=== PATIENT | male | born 1980 | race Two or more races ===

== ENCOUNTER 2017-10-10 19:03 | Emergency (ER) | payer SELFPAY ==
[2017-10-10] MEDS ORDERED: IBUPROFEN 600 MG TABLET (FP) PO ONE ×2 (19:32→20:31)
--- NOTE | 2017-10-10 19:32 | PDOC ---
Rapid Medical Evaluation Time Seen by Provider: 10/10/17 19:27 Medical Evaluation: Allergies Allergy/AdvReac Type Severity Reaction Status Date / Time No Known Allergies Allergy Verified 05/02/13 13:00 10/10/17 19:28 The patient presents with a chief complaint of: fever I have performed a brief in-person evaluation of this patient. Pertinent physical exam findings: vss, stable I have ordered the following: rapid strep, influenza, motrin The patient will proceed to the ED for further evaluation.
[2017-10-10 19:33] VITALS: BP 131/82; PULSE 74; BMI 26.0
[2017-10-10 20:49] VITALS: TEMP 100.4
--- NOTE | 2017-10-10 21:29 | PDOC ---
History of Present Illness - General Chief Complaint: Sore Throat Stated Complaint: THROAT PAIN, ARM PAIN Time Seen by Provider: 10/10/17 19:27 History Source: Patient Exam Limitations: No Limitations - History of Present Illness Initial Comments: 10/10/17 21:24 37-year-old male [place] with past medical history of presents to emergency department with 2 weeks of sore throat and dry cough. Patient states she's been experiencing intermittent fevers but has not been checking his temperature only feeling warm. Patient denies any headaches, dizziness, chest pain, shortness of breath, abdominal pain, nausea, vomiting, dysuria, hematuria, diarrhea Past History - Past Medical History Allergies/Adverse Reactions: Allergies Allergy/AdvReac Type Severity Reaction Status Date / Time No Known Allergies Allergy Verified 10/10/17 19:29 Home Medications: Ambulatory Orders No Home Medications 0 dose .ROUTE UTDICT 05/02/13 - Suicide/Smoking/Psychosocial Hx Smoking Status: No Smoking History: Never smoked Number of Cigarettes Smoked Daily: 0 Review of Systems - Review of Systems Able to Perform ROS?: Yes Is the patient limited [place] proficient: No Constitutional: Yes: See HPI HEENTM: Yes: See HPI Respiratory: Yes: See HPI Cardiac (ROS): No: Symptoms Reported ABD/GI: No: Symptoms Reported : No: Symptoms Reported Musculoskeletal: No: Symptoms Reported Integumentary: No: Symptoms Reported Neurological: No: Symptoms reported Endocrine: No: Symptoms Reported Hematologic/Lymphatic: No: Symptoms Reported *Physical Exam - Vital Signs Last Vital Signs Temp Pulse Resp BP Pulse Ox 100.4 F H 74 16 131/82 99 10/10/17 20:48 10/10/17 19:25 10/10/17 19:25 10/10/17 19:25 10/10/17 19:25 - Physical Exam General Appearance: Yes: Appropriately Dressed. No: Apparent Distress HEENT: positive: Normal ENT Inspection Neck: positive: Trachea midline, Supple Respiratory/Chest: positive: Lungs Clear, Normal Breath Sounds. negative: Respiratory Distress, Accessory Muscle Use Cardiovascular: positive: Regular Rhythm, Regular Rate, S1, S2. negative: Murmur Gastrointestinal/Abdominal: positive: Normal Bowel Sounds, Soft. negative: Tender Musculoskeletal: positive: Normal Inspection. negative: CVA Tenderness Extremity: positive: Normal Inspection, Normal Range of Motion Integumentary: positive: Normal Color, Dry, Warm Neurologic: positive: Alert, Normal Response, Motor Strength 5/5 ED Treatment Course - Medications Given in the ED: ED Medications Discontinued Medications Generic Name Dose Route Start Last Admin Trade Name Christian PRN Reason Stop Dose Admin Ibuprofen 600 mg 10/10/17 19:32 10/10/17 19:45 Motrin - PO 10/10/17 19:33 600 mg ONCE ONE Administration Medical Decision Making - Medical Decision Making 10/10/17 21:27 A/P: 37-year-old male without past medical history with 2 weeks of upper respiratory symptoms TMs within normal limits. External auditory canal is clear without erythema or exudate Pharynx clear without erythema or exudate No stridor present No cervical lymphadenopathy present Lungs clear to auscultation bilaterally Given onset of symptoms greater than 72 hours, have instructed the patient on symptomatic treatment of upper respiratory infection. Patient verbalizes understanding of discharge instructions. *DC/Admit/Observation/Transfer Diagnosis at time of Disposition: Upper respiratory infection Qualifiers: URI type: unspecified viral URI Qualified Code(s): J06.9 - Acute upper respiratory infection, unspecified - Discharge Dispostion Disposition: HOME Condition at time of disposition: Stable Admit: No - Referrals - Patient Instructions Additional Instructions: Rest, drink lots of fluids: Teas, water, soups, Pedialyte Saltwater gargles Steamy showers/seem to face break up mucus Avoid contact with others until fevers and cough resolved Lots of handwashing and good hygiene Continue [id number] medications for symptomatic relief Tylenol or Motrin for fever and pain Followup with private physician in one to 2 days as needed Return to emergency department for worsened symptoms, fevers, dehydration - Post Discharge Activity
== END 2017-10-10 21:28 | disposition home or self-care (01) ==
LOC: JERFT 19:03
DX: J06.9 Acute upper respiratory infection, unspecified (principal)
CPT/HCPCS: 99281-25

== ENCOUNTER 2020-06-04 10:12 | Inpatient (IN) | payer OTHER ==
[2020-06-04] MEDS ORDERED: NALOXONE HCL 0.4 MG/ML VIAL IVPUSH ONE (10:20)
[2020-06-04] MEDS ORDERED: ONDANSETRON 4 MG/2 ML VIAL IVPUSH ONE ×2 (10:20→10:56)
[2020-06-04] MEDS ORDERED: SODIUM CHLORIDE 0.9% 500 ML INFUS.BAG IV ONE (10:20)
[2020-06-04 11:04] LABS: BASO % 0.4 % (0-2.0); EOS % 0.2 % (0-4.5); HEMATOCRIT 44.5 % (35.4-49); HEMOGLOBIN 14.5 GM/dL (11.7-16.9); LYMPH % 10.8 % (8-40); MCH 29.2 pg (25.7-33.7); MCHC 32.5 g/dl (32.0-35.9); MEAN CELL VOLUME 89.8 fl (80-96); MEAN PLT VOLUME 9.1 fl (7.5-11.1); MONO % 5.4 % (3.8-10.2); NEUT % 83.2 % (42.8-82.8); PLATELET COUNT 307 K/MM3 (134-434); RBC 4.96 M/mm3 (4.00-5.60); RDW 14.1 % (11.9-15.9); WHITE BLOOD COUNT 15.5 K/mm3 (4.0-10.0)
[2020-06-04 11:12] LABS: INR 1.03 (0.83-1.09); PROTHROMBIN TIME (PATIENT) 12.6 SEC (9.7-13.0)
[2020-06-04 11:14] LABS: ACTIVATED PTT 30.2 SECONDS (25.2-36.5)
[2020-06-04 11:21] LABS: EPI CELLS 7 /uL (0-25.1); HYALINE CASTS 3 /uL (0-3.1); URINE APPEARANCE CLEAR; URINE BACTERIA 7 /uL (0-1359); URINE BILIRUBIN NEGATIVE (NEGATIVE); URINE COLOR YELLOW; URINE GLUCOSE (UA) NEGATIVE (NEGATIVE); URINE KETONE NEGATIVE (NEGATIVE); URINE LEUK ESTERASE NEGATIVE (NEGATIVE); URINE NITRITE NEGATIVE (NEGATIVE); URINE PROTEIN 2+ (NEGATIVE); URINE RBC 8 /uL (0-23.9); URINE UROBILINOGEN 0.2 mg/dL (0.2-1.0); URINE WBC 1 /uL (0-25.8)
[2020-06-04] MEDS ORDERED: MECLIZINE HCL 25 MG TABLET (FP) PO ONE ×2 (11:25→12:02)
[2020-06-04 11:28] LABS: COCAINE, UR NEGATIVE ng/ml (CUTOFF=300); URINE AMPHETAMINES NEGATIVE ng/ml (CUTOFF=500); URINE BARBITURATES NEGATIVE ng/ml (CUTOFF=200); URINE BENZODIAZEPINES NEGATIVE ng/ml (CUTOFF=200)
[2020-06-04 11:29] LABS: PHENCYCLIDINE,URINE NEGATIVE ng/ml (CUTOFF=25)
[2020-06-04] MEDS ORDERED: MECLIZINE HCL 25 MG TABLET (FP) ONE (11:31)
[2020-06-04 11:32] LABS: CHLORIDE 106 mmol/L (98-107); POTASSIUM 4.3 mmol/L (3.5-5.1); SODIUM 139 mmol/L (136-145)
[2020-06-04 11:34] LABS: ALBUMIN 4.1 g/dl (3.4-5.0); ANION GAP 8 MMOL/L (8-16); BLOOD UREA NITROGEN 19.6 mg/dL (7-18); CALCIUM 8.7 mg/dL (8.5-10.1); CO2 25 mmol/L (21-32)
[2020-06-04 11:35] LABS: GLUCOSE,RANDOM 144 mg/dL (74-106)
[2020-06-04 11:37] LABS: METHADONE, UR NEGATIVE ng/ml (CUTOFF=300); OPIATES, URI NEGATIVE ng/ml (CUTOFF=300)
[2020-06-04 11:38] LABS: SGOT/AST 55 U/L (15-37); SGPT/ALT 69 U/L (13-61)
[2020-06-04] MEDS ORDERED: METOCLOPRAMIDE HCL INJECTION 10 MG/2 ML VIAL ONE (11:38)
[2020-06-04 11:39] LABS: BILIRUBIN,TOTAL 0.5 mg/dL (0.2-1); LDH 321 U/L (87-246); TOT PROT 8.5 g/dl (6.4-8.2)
[2020-06-04 11:40] LABS: ALK PHOS 103 U/L (45-117)
[2020-06-04] MEDS ORDERED: METOCLOPRAMIDE HCL INJECTION 10 MG/2 ML VIAL IVPUSH ONE (11:41)
[2020-06-04] MEDS ORDERED: diazePAM CARPU-JECT 10 MG/2 ML DISP.SYRIN IVPUSH ONE (11:44)
[2020-06-04] MEDS ORDERED: diazePAM CARPU-JECT 10 MG/2 ML DISP.SYRIN ONE (11:47)
[2020-06-04] MEDS ORDERED: ATROPINE SULFATE 1 MG/10 ML DISP.SYRIN IVPUSH ONE (11:50)
[2020-06-04] MEDS ORDERED: ATROPINE SULFATE 1 MG/10 ML DISP.SYRIN ONE (11:55)
[2020-06-04 12:33] LABS: ARTERIAL BLD GAS O2 SATURATION 96.5 mmHg (95-98); ARTERIAL BLOOD GAS BASE EXCESS -5.3 mmol/L (-2-2); ARTERIAL BLOOD GAS PO2 95.8 mmHg (80-100); ARTERIAL BLOOD GAS pH 7.288 (7.350-7.450)
[2020-06-04 12:34] LABS: ALLENS TEST POSITIVE
[2020-06-04] MEDS ORDERED: SODIUM CHLORIDE 1,000 ML IV STA (13:05)
[2020-06-04] MEDS ORDERED: METOCLOPRAMIDE HCL INJECTION 10 MG/2 ML VIAL IVPUSH PRN ×2 (15:18→21:08)
[2020-06-04] MEDS ORDERED: TRIMETHOBENZAMIDE HCL 200MG/2ML INJ IM PRN (15:18)
[2020-06-04] MEDS: SODIUM CHLORIDE 1,000 ML IV SCH (15:40)
[2020-06-04 16:17] LABS: CHOLESTEROL 210 mg/dL (50-200)
[2020-06-04 16:18] LABS: TRIGLYCERIDES 64 mg/dL (0-150)
[2020-06-04 16:19] LABS: LDL CHOLESTEROL (ONLY SJRH) 124 mg/dL (5-100)
[2020-06-04 16:21] LABS: HDL CHOLESTEROL 67 mg/dL (40-60)
[2020-06-04] MEDS ORDERED: ATROPINE SULFATE 1 MG/10 ML DISP.SYRIN IVPUSH PRN (21:00)
[2020-06-04] MEDS ORDERED: ONDANSETRON 4 MG/2 ML VIAL IVPUSH PRN (21:08)
[2020-06-04 23:01] VITALS: BMI 27.5
[2020-06-05] MEDS: SODIUM CHLORIDE 1,000 ML IV SCH (06:46)
[2020-06-05 07:18] LABS: BASO % 0.6 % (0-2.0); EOS % 0.1 % (0-4.5); HEMATOCRIT 40.9 % (35.4-49); HEMOGLOBIN 13.3 GM/dL (11.7-16.9); LYMPH % 11.2 % (8-40); MCH 29.5 pg (25.7-33.7); MCHC 32.6 g/dl (32.0-35.9); MEAN CELL VOLUME 90.4 fl (80-96); MEAN PLT VOLUME 9.2 fl (7.5-11.1); MONO % 5.9 % (3.8-10.2); NEUT % 82.2 % (42.8-82.8); PLATELET COUNT 227 K/MM3 (134-434); RBC 4.52 M/mm3 (4.00-5.60); RDW 14.3 % (11.9-15.9)
[2020-06-05 08:11] LABS: POTASSIUM 3.9 mmol/L (3.5-5.1)
[2020-06-05 08:33] LABS: CALCIUM 8.6 mg/dL (8.5-10.1)
[2020-06-05 08:34] LABS: ALBUMIN 3.6 g/dl (3.4-5.0); BLOOD UREA NITROGEN 13.8 mg/dL (7-18); MAGNESIUM 2.2 mg/dL (1.8-2.4)
[2020-06-05 08:36] LABS: CREATININE 0.9 mg/dL (0.55-1.3); PHOSPHOROUS 2.7 mg/dL (2.5-4.9)
[2020-06-05 08:37] LABS: BILIRUBIN,TOTAL 1.1 mg/dL (0.2-1); TOT PROT 6.9 g/dl (6.4-8.2)
[2020-06-05] MEDS: PANTOPRAZOLE SODIUM 40 MG VIAL IVPUSH SCH (09:23)
[2020-06-05] MEDS: ENOXAPARIN NA (PORCINE) 40 MG/0.4 ML DISP.SYRIN SQ SCH (09:24)
[2020-06-05] MEDS: MECLIZINE HCL 25 MG TABLET (FP) PO SCH ×2 (17:13→23:07)
[2020-06-06] MEDS: MECLIZINE HCL 25 MG TABLET (FP) PO SCH ×4 (05:42→23:24)
[2020-06-06] MEDS: SODIUM CHLORIDE 1,000 ML IV SCH ×3 (05:42→23:25)
[2020-06-06 07:42] LABS: POTASSIUM 3.8 mmol/L (3.5-5.1)
[2020-06-06 07:46] LABS: ALBUMIN 3.2 g/dl (3.4-5.0); BLOOD UREA NITROGEN 13.2 mg/dL (7-18); CALCIUM 8.3 mg/dL (8.5-10.1)
[2020-06-06 07:50] LABS: BILIRUBIN,TOTAL 0.8 mg/dL (0.2-1); TOT PROT 6.5 g/dl (6.4-8.2)
[2020-06-06] MEDS: ENOXAPARIN NA (PORCINE) 40 MG/0.4 ML DISP.SYRIN SQ SCH (09:41)
[2020-06-06] MEDS: PANTOPRAZOLE SODIUM 40 MG VIAL IVPUSH SCH (09:41)
[2020-06-07] MEDS: MECLIZINE HCL 25 MG TABLET (FP) PO SCH ×3 (05:21→17:36)
[2020-06-07] MEDS: ENOXAPARIN NA (PORCINE) 40 MG/0.4 ML DISP.SYRIN SQ SCH (09:10)
[2020-06-07] MEDS: PANTOPRAZOLE SODIUM 40 MG VIAL IVPUSH SCH (09:10)
[2020-06-07 18:31] VITALS: BP 138/84; PULSE 58; TEMP 98
== END 2020-06-07 18:33 | disposition home or self-care (01) | DRG 111 ==
LOC: JER 10:12 → JERBED 15:09 → J4S 22:30
DX: H83.03 Labyrinthitis, bilateral (principal); R42 Dizziness and giddiness; R11.2 Nausea with vomiting, unspecified; R00.1 Bradycardia, unspecified; D72.829 Elevated white blood cell count, unspecified; R74.01 Elevation of levels of liver transaminase levels; E87.4 Mixed disorder of acid-base balance; E87.2 Acidosis; A08.4 Viral intestinal infection, unspecified
CPT/HCPCS: 36415; 36600; 70450-TC; 70551-TC; 71045-TC-FY; 72125-TC; 80053; 80061; 80307; 81003; 82140; 82550; 82553; 82728; 82803; 82962; 83036; 83605; 83615; 83721; 83735; 84100; 84443; 84484; 85025; 85610; 85730; 86850; 86900; 86901; 93005; 93010; 93306-TC; 97116-GP; 97162-GP; 99291; C9803; U0003